=== PATIENT | male | born 1990 | race Caucasian/White ===

== ENCOUNTER 2017-03-15 10:00 | Day surgery (SDC) | payer SELFPAY ==
[~2017-03-15 10:00] MED LIST: ACETAMINOPHEN 1,000 MG/100 ML BTL IV ONE; CEFAZOLIN 2 Gram 2 GM/50 ML BAG IVPB ONE; FAMOTIDINE 20MG TABLET PO ONE; MECLIZINE 25 MG TABLET PO ONE; METOCLOPRAMIDE 10 MG TABLET PO ONE
[2017-03-15] MEDS ORDERED: FENTANYL PF 100MCG/2ML VIAL IV ONE (10:01)
[2017-03-15] MEDS ORDERED: LIDOCAINE 1% W/EPI 1:200,000 MPF 30ML SQ ONE (10:01)
[2017-03-15] MEDS ORDERED: MIDAZOLAM HCL 2MG/2ML VIAL IV ONE (10:01)
[2017-03-15] MEDS ORDERED: FENTANYL PF 0.25MG/5ML AMPUL IV ONE (10:01)
[2017-03-15] MEDS ORDERED: SEVOFLURANE 250 ML INH ONE (10:01)
[2017-03-15] MEDS ORDERED: BUPIVACAINE 0.75% W/EPI MPF 30ML VIAL IVP ONE (10:01)
[2017-03-15] MEDS ORDERED: HYDROMORPHONE HCL 2 MG/ML VIAL IV ONE (10:01)
[2017-03-15] MEDS ORDERED: ROCURONIUM BROMIDE 50MG/5ML VIAL IV ONE (10:01)
[2017-03-15] MEDS ORDERED: KETOROLAC 30 MG/ML VIAL IVP ONE (10:01)
[2017-03-15] MEDS ORDERED: LIDOCAINE 2% MDV (20MG/ML) 20ML VIAL IV ONE (10:01)
[2017-03-15] MEDS ORDERED: PROPOFOL 10 MG/ML VIAL IV ONE (10:01)
[2017-03-15] MEDS ORDERED: ONDANSETRON HCL IV 4 MG/2 ML VIAL IVP ONE ×4 (10:01→16:18)
[2017-03-15] MEDS: HYDROCODONE/APAP 7.5/325MG TABLET PO ONE ×2 (15:22→18:49)
[2017-03-15] MEDS ORDERED: DIAZEPAM 5 MG/1 ML TUBX IVP ONE (16:17)
[2017-03-15] MEDS ORDERED: HYDROMORPHONE HCL 1 MG/ML SYRINGE IVP ONE (16:18)
[2017-03-15] MEDS ORDERED: HYDROCODONE/APAP 5/325MG TABLET PO PRN (18:17)
[2017-03-15] MEDS ORDERED: HYDROMORPHONE HCL 1 MG/ML SYRINGE IVP PRN (18:17)
[2017-03-15] MEDS ORDERED: CEFAZOLIN 1 Gram 1 GM/50 ML BAG IVPB ONE (18:17)
[2017-03-15] MEDS ORDERED: ENOXAPARIN 30 MG/0.3 ML SYR SQ SCH (18:30)
[2017-03-15] MEDS ORDERED: ONDANSETRON HCL IV 4 MG/2 ML VIAL IVP PRN (19:09)
[2017-03-15] MEDS ORDERED: METOCLOPRAMIDE HCL 10 MG/2 ML VIAL IVP ONE (19:57)
[2017-03-15] MEDS ORDERED: RINGERS SOLUTION,LACTATED 1,000 ML IV PRN (19:58)
[2017-03-15 20:18] LABS: HEMATOCRIT 37.6 % (42.0-52.0); HEMOGLOBIN 12.3 gm/dl (14.0-18.0)
[2017-03-15] MEDS: CEFAZOLIN 1 Gram 1 GM/50 ML BAG IVPB SCH (21:46)
[2017-03-15] MEDS: NEXIUM 20 MG PO SCH (21:56)
[2017-03-15] MEDS: TRAMADOL HCL 50 MG TABLET PO PRN (22:19)
[2017-03-15] MEDS: DIAZEPAM 5 MG TABLET PO SCH (23:18)
[2017-03-15] MEDS: RINGERS SOLUTION,LACTATED 1,000 ML IV PRN (23:34)
[2017-03-16] MEDS: HYDROCODONE/APAP 5/325MG TABLET PO PRN ×2 (02:48→04:44)
[2017-03-16] MEDS: RINGERS SOLUTION,LACTATED 1,000 ML IV PRN (04:46)
[2017-03-16] MEDS: METOCLOPRAMIDE HCL 10 MG/2 ML VIAL IVP PRN ×2 (06:10→12:37)
[2017-03-16] MEDS: CEFAZOLIN 1 Gram 1 GM/50 ML BAG IVPB SCH ×2 (06:10→11:20)
[2017-03-16] MEDS ORDERED: IBUPROFEN 400 MG TABLET PO PRN (06:48)
[2017-03-16] MEDS: DIAZEPAM 5 MG TABLET PO SCH (08:56)
[2017-03-16] MEDS ORDERED: ENOXAPARIN 30 MG/0.3 ML SYR SQ SCH (10:00)
[2017-03-16] MEDS ORDERED: ENOXAPARIN 40 MG/0.4 ML SYR SQ SCH (10:00)
[2017-03-16] MEDS: NEXIUM 20 MG PO SCH (11:24)
[2017-03-16] MEDS: TRAMADOL HCL 50 MG TABLET PO PRN (12:36)
--- NOTE | 2017-03-16 12:50 | Operative Note ---
DATE OF SURGERY: 03/15/2017 PREOPERATIVE DIAGNOSES: 1. Massive weight loss. 2. Chronic panniculitis. POSTOPERATIVE DIAGNOSES: 1. Massive weight loss. 2. Chronic panniculitis. OPERATION: Panniculectomy with abdominal wall plication. Surgeon: Jb Acevedo MD Anesthesia: General. ESTIMATED BLOOD LOSS: 200 mL DRAINS: A 15 round Zhou. SPECIMENS: 4200 g tissue, 400 mL of aspirate from the hips. PROCEDURE: The patient was interviewed preoperatively. The operative plan was reviewed. He was marked in the standing position. All questions were answered. He was then taken to the operating room with PDS stockings. After induction of uncomplicated general anesthesia, all pressure points well padded, protected, we prepped and draped in the usual sterile manner with chlorhexidine. We circumscribed his umbilicus with a 15-blade and left in a well-vascularized stalk. We then make our inferior incision through the dermis sharply and then used cautery and suture ligation for hemostasis until we identified a suprafascial plane. We then raised the flap in a suprafascial plane leaving a layer of vasculature and lymphatics on the fascia to help reduce incidence of seroma. This went up around the umbilicus to the costal margins and xiphoid. We then plicated with a looped 0 Monocryl from the xiphoid to the pubic tubercle. Upon completion of the plication, we blocked subfascially with 1% Marcaine with epinephrine 20 mL. We then defatted the suprapubic area. We placed a drain and secured it with nylon. We then closed temporarily, checked for symmetry of the incision and contour. We then sat him up about 45 degrees and we proceeded with additional skin resection in the suprapubic area to get as flat a pubic area as possible and get the incision as low as possible also. We then made the scar as low and symmetrical as possible. We then closed using absorbable betsy every 5 mm with excellent eversion. The midline was secured with absorbable 3-0 Monocryl. We then ran a subcuticular 3-0 Monocryl. We then marked the loose area for the umbilicus in the midline at the level of the anterior-superior iliac spine. We excised a small heart-shaped ellipse. As expected, the umbilicus was directly beneath and well vascularized. We marked the superior aspect of it with a suture prior. We put this in place at the superior aspect at 12-o'clock and then secured the umbilicus with 3-0 Monocryl. It should be noted that prior to placement of the second layer, we did tumesce and aspirated the hips to give a little bit smoother contour with a 3 mm cannula. Total was about 300 mL. He tolerated the procedure well without complication. LACHELLE
== END 2017-03-16 15:30 | disposition home or self-care (01) ==
LOC: SUR 10:00 → MEDSURG 15:07 → SUR 03-16 15:30
PROVIDERS: ATTEND Plastic Surgery
DX: E65 Localized adiposity (principal); R63.4 Abnormal weight loss
CPT/HCPCS: 85018; 85014; 94760; 15830; 15847; 00802; J3490 ×3; J1885; J2405; J3010; J0690 ×3; J1170 ×2; J1650; J2765; J3360; J7120